=== PATIENT | female | born 1985 | race Native Hawaiian/Other Pacific Islander ===

== ENCOUNTER 2022-09-28 10:40 | Outpatient (CLI) | payer OTHER ==
--- NOTE | 2022-09-28 19:06 | XRAY Report ---
PROCEDURE: Ribs w/PA Chest LT INDICATIONS: CONTUSION OF LEFT FRONTAL WALL THORAX TECHNIQUE: 2 views of the left ribs were acquired, along with a single view chest. COMPARISON: None. FINDINGS: Surgical changes and devices: None. Bones and chest wall: No fractures or dislocations. No suspicious bony lesions. Overlying soft tis sues appear unremarkable. Lungs and pleura: No pleural effusions or pneumothorax. Lungs appear clear. Mediastinum: Mediastinal contours appear normal. Heart size is normal. IMPRESSION: No displaced rib fracture or pneumothorax. Reviewed by: Helio Knox on 09/28/2022 6:05 PM DB Approved by: Helio Knox on 09/28/2022 6:05 PM DB Station ID: [id number]
== END 2022-09-28 10:41 | disposition home or self-care (01) ==
LOC: DI 10:40
PROVIDERS: ATTEND Registered Nurse
DX: S20.212A Contusion of left front wall of thorax, initial encounter (principal)

== ENCOUNTER 2023-07-20 08:00 | Outpatient (CLI) | payer OTHER ==
[2023-07-20 16:55] LABS: BILIRUBIN,URINE NEGATIVE (NEGATIVE); GLUCOSE, URINE (UA) NEGATIVE (NEGATIVE); KETONES,URINE (UA) TRACE mg/dL (NEGATIVE); LEUKOCYTE ESTERASE, URINE NEGATIVE (NEGATIVE); NITRITE,URINE NEGATIVE (NEGATIVE); OCCULT BLOOD,URINE NEGATIVE (NEGATIVE); PROTEIN,URINE NEGATIVE (NEGATIVE); UROBILINOGEN,URINE 0.2 (NORMAL) E.U./dL (NORMAL)
[2023-07-20 16:57] LABS: CLARITY,URINE CLOUDY (CLEAR)
[2023-07-20 17:06] LABS: AMORPHOUS SEDIMENT,UR Marked /LPF; BACTERIA,URINE None Seen /HPF (None Seen); RBC,URINE 0-5 /HPF (0-5); SQUAMOUS EPITHELIAL CELL,UR RARE Squamous (<= Few); WBC,URINE 0-3 /HPF (0-5)
== END 2023-07-20 23:59 | disposition home or self-care (01) ==
LOC: LAB.WC 08:00
PROVIDERS: ATTEND Obstetrics & Gynecology
DX: Z34.90 Encounter for supervision of normal pregnancy, unspecified, unspecified trimester (principal)
CPT/HCPCS: 81001; 87086

== ENCOUNTER 2023-07-21 13:23 | Outpatient (CLI) | payer OTHER ==
[2023-07-21 17:42] LABS: BASOPHILS # (AUTO) 0.1 10^3/uL (0.0-0.1); BASOPHILS % (AUTO) 0.5 %; EOSINOPHILS # (AUTO) 0.3 10^3/uL (0.0-0.7); EOSINOPHILS % (AUTO) 2.6 %; HGB - HEMOGLOBIN 14.1 g/dL (12.0-16.0); LYMPHOCYTES # (AUTO) 2.4 10^3/uL (1.5-3.5); LYMPHOCYTES % (AUTO) 24.9 %; MEAN CORPUSCULAR HEMOGLOBIN 27.2 pg (27.0-31.0); MEAN CORPUSCULAR VOLUME 84.9 fL (81.0-99.0); MEAN PLATELET VOLUME 10.5 fL (7.9-10.8); MONOCYTES # (AUTO) 0.3 10^3/uL (0.0-1.0); MONOCYTES % (AUTO) 3.2 %; NEUTROPHILS # (AUTO) 6.5 10^3/uL (1.5-6.6); NEUTROPHILS % (AUTO) 68.5 %; PLT - PLATELET COUNT 415 10^3/uL (130-450); RED BLOOD COUNT 5.18 10^6/uL (4.20-5.40); RED CELL DISTRIBUTION WIDTH 13.6 % (12.0-15.0); WHITE BLOOD COUNT 9.6 x10^3/uL (4.8-10.8)
[2023-07-22 05:14] LABS: HBsAG SCREEN Negative (Negative); HIV SCREEN 4TH GENERATION Non Reactive (Non Reactive)
[2023-07-22 07:10] LABS: RPR Non Reactive (Non Reactive)
[2023-07-22 09:10] LABS: VARICELLA-ZOSTER AB IGG 1897 index (Immune >165)
[2023-07-24 12:07] LABS: HCV AB Non Reactive (Non Reactive)
== END 2023-07-21 13:24 | disposition home or self-care (01) ==
LOC: LAB.N 13:23
PROVIDERS: ATTEND Obstetrics & Gynecology
DX: Z34.90 Encounter for supervision of normal pregnancy, unspecified, unspecified trimester (principal)
CPT/HCPCS: 36415; 85025; 86592; 86762; 86787; 86803; 86850; 86900; 86901; 87340; 87389

== ENCOUNTER 2023-08-07 06:38 | Emergency (ER) | payer BC, OTHER ==
--- NOTE | 2023-08-07 06:51 | ED Physician Documentation ---
PD HPI NVD - Stated complaint Stated Complaint: /V - Chief complaint Chief Complaint: Abd Pain - History obtained from History obtained from: Patient - History of Present Illness Timing - onset: How many days ago (has had commonly nausea with occasional vomitiing over past 2 months, but has more consistent the past 2-3 days with general weakness and lightheaded. Is currently 13 weeks . Sees RN BABY and Rx Vit B-6, doxylamine.) Timing - details: Gradual onset, Still present Associated symptoms: Loss of appetite. No: Fever, Abdominal pain Contributing factors: Other (). No: Sick contact, Bad food, Recent antibiotics Improved by: No: Vomiting Worsened by: Eating Recently seen: Clinic (seen RN BAB[facility] clinic with routine care so far.) Review of Systems Constitutional: denies: Fever, Chills Nose: denies: Rhinorrhea / runny nose, Congestion Throat: denies: Sore throat Respiratory: denies: Cough : reports: Now EGA (13 wks). denies: Dysuria, Frequency, Discharge, Vaginal bleeding PD PAST MEDICAL HISTORY - Past Medical History Past Medical History: Yes Endocrine/Autoimmune: HyPOthyroidism - Past Surgical History Past Surgical History: Yes /[employer]: section, Other HEENT: Other - Present Medications Home Medications: Ambulatory Orders Medication Instructions Recorded Confirmed Levothyroxine [Synthroid] 1 tab PO DAILY 07/03/23 08/07/23 No122/Iron/Folic Acid 1 tab PO DAILY 07/03/23 08/07/23 [ Multi Tablet] Magnesium Oxide [Mag Ox] 400 mg PO DAILY #15 tablet 08/07/23 Ondansetron Odt [Zofran] 4 mg TL Q6H PRN #20 tablet 08/07/23 Promethazine Supp [Phenergan Supp] 25 mg DE Q6H PRN #10 supp 08/07/23 dexAMETHasone [Decadron] 4 mg PO DAILY #5 tablet 08/07/23 - Allergies Allergies/Adverse Reactions: Allergies Allergy/AdvReac Type Severity Reaction Status Date / Time Penicillins Allergy Hives Verified 08/07/23 06:48 Sulfa (Sulfonamide Allergy Hives Verified 08/07/23 06:48 Antibiotics) - Social History Does the pt smoke?: No Smoking Status: Never smoker Does the pt drink ETOH?: No Does the pt have substance abuse?: No - Immunizations Immunizations are current?: Yes - POLST Patient has POLST: No PD ED PE NORMAL - Vitals Vital signs reviewed: Yes - General General: Alert and oriented X 3, No acute distress, Well developed/nourished - HEENT HEENT: Pharynx benign. No: Moist mucous membranes - Neck Neck: Supple, no meningeal sign, No adenopathy - Cardiac Cardiac: RRR - Respiratory Respiratory: Clear bilaterally - Abdomen Abdomen: Soft, Non tender, Non distended, Other (bedside US by me showed normal IUP c/w dates, with movement and good FHR 130s. No free fluid noted in pelvis. ) Results - Vitals Vitals: Vital Signs - 24 hr 08/07/23 08/07/23 06:40 09:14 Temperature 36.2 C L Heart Rate 63 76 Respiratory 16 16 Rate Blood Pressure 110/63 104/73 O2 Saturation 100 100 Oxygen O2 Source Room air - Labs Labs: Laboratory Tests 08/07/23 08/07/23 08/07/23 07:20 07:20 07:30 WBC 8.3 RBC 4.56 Hgb 12.9 Hct 39.0 MCV 85.5 MCH 28.3 MCHC 33.1 RDW 14.6 Plt Count 295 MPV 10.5 Neut # (Auto) 5.6 Lymph # (Auto) 2.0 Andrew # (Auto) 0.4 Eos # (Auto) 0.3 Baso # (Auto) 0.0 Absolute Nucleated RBC 0.00 Nucleated RBC % 0.0 Sodium 133 L Potassium 3.9 Chloride 103 Carbon Dioxide 24 Anion Gap 6.0 BUN 6 Creatinine 0.5 L Estimated GFR (MDRD) 140 Glucose 88 Calcium 9.8 Phosphorus 3.8 Magnesium 1.7 Total Bilirubin 0.5 AST 18 ALT 10 Alkaline Phosphatase 26 L Total Protein 7.4 Albumin 4.4 Globulin 3.0 Albumin/Globulin Ratio 1.5 Lipase 44 Urine Color YELLOW Urine Clarity CLEAR Urine pH 6.5 Ur Specific [place] 1.020 Urine Protein NEGATIVE Urine Glucose (UA) NEGATIVE Urine Ketones NEGATIVE Urine Occult Blood TRACE-INTA Urine Nitrite NEGATIVE Urine Bilirubin NEGATIVE Urine Urobilinogen 0.2 (NORMAL) Ur Leukocyte Esterase NEGATIVE Ur Microscopic Review NOT INDICATED Urine Culture Comments NOT INDICATED PD Medical Decision Making - ED course Complexity details: reviewed results (Labs without notable lytes nor sugar problems.), re-evaluated patient (feeling much improved with IV lfuids and meds. Per ACOG, can add Decadron short term, and PRN ZOfran/Phenergan in addition to the Vit B-6 and doxylamine.), considered differential (seems related hyperemesis with worse the past few days, leading to volume depletion. Can give IV fluids and meds for symptoms. To check lytes. Bedside US to affirm normal movement,FHR.), d/w patient Departure - Departure Disposition: 01 Home, Self Care Clinical Impression: Hyperemesis gravidarum before end of 22 week gestation, dehydration Condition: Stable Record reviewed to determine appropriate education?: Yes Follow-Up: Nico Johnson MD [Provider Admit Priv/Credential] - Prescriptions: dexAMETHasone [Decadron] 4 mg PO DAILY #5 tablet Magnesium Oxide [Mag Ox] 400 mg PO DAILY #15 tablet Promethazine Supp [Phenergan Supp] 25 mg DE Q6H PRN #10 supp PRN Reason: Nausea / Vomiting Ondansetron Odt [Zofran] 4 mg TL Q6H PRN #20 tablet PRN Reason: Nausea / Vomiting Comments: Bedside ultrasound showed normal appearance of your with good movement and heartbeat in position. Stay well-hydrated best you can. Your chemistry panel showed normal lab values though the magnesium level was on the low end of normal. I would consider a supplement of that for a week or 2 just to bring up the levels. You can add a stool softener such as docusate daily and that is okay in . Be sure to have a good fiber diet. Continue with your current usual medicines. Add Decadron steroid daily for a fe w days. This is a common recommendation from ACOG for ongoing nausea episodes that have increased. Add ondansetron every 6-8 hours if needed for nausea. If you are having active vomiting and oral medicines not working, I did prescribe some promethazine suppositories as a backup as well. Follow-up with your RN BABY. I sent your prescriptions to your preferred pharmacy. Off work today. Forms: PCP List Discharge Date/Time: 08/07/23 09:58
[2023-08-07 06:54] VITALS: O2SAT 100
[2023-08-07] MEDS: LACTATED RINGERS 2,000 ML IV ONE (07:26)
[2023-08-07] MEDS: KETOROLAC 15 MG/ML VIAL IVP STA (07:27)
[2023-08-07] MEDS: FAMOTIDINE 20 MG/2 ML VIAL IVP STA (07:27)
[2023-08-07] MEDS: DOCUSATE SODIUM 100 MG CAPSULE PO STA (07:28)
[2023-08-07] MEDS: ONDANSETRON 4 MG/2 ML VIAL IVP STA (07:28)
[2023-08-07 07:40] LABS: BILIRUBIN,URINE NEGATIVE (NEGATIVE); GLUCOSE, URINE (UA) NEGATIVE (NEGATIVE); KETONES,URINE (UA) NEGATIVE (NEGATIVE); LEUKOCYTE ESTERASE, URINE NEGATIVE (NEGATIVE); NITRITE,URINE NEGATIVE (NEGATIVE); OCCULT BLOOD,URINE TRACE-INTA (NEGATIVE); PH,URINE 6.5 PH (5.0-7.5); PROTEIN,URINE NEGATIVE (NEGATIVE); UROBILINOGEN,URINE 0.2 (NORMAL) E.U./dL (NORMAL)
[2023-08-07 07:42] LABS: MAGNESIUM 1.7 mg/dL (1.7-2.3); PHOSPHORUS 3.8 mg/dL (2.5-5.0)
[2023-08-07 07:43] LABS: CLARITY,URINE CLEAR (CLEAR)
[2023-08-07 07:44] LABS: ALBUMIN 4.4 g/dL (3.2-5.5); ALBUMIN/GLOBULIN RATIO 1.5 (1.0-2.2); BILIRUBIN,TOTAL 0.5 mg/dL (0.2-1.0); CALCIUM 9.8 mg/dL (8.5-10.3); CREATININE 0.5 mg/dL (0.6-1.3); POTASSIUM 3.9 mmol/L (3.5-4.5); TOTAL PROTEIN 7.4 g/dL (6.4-8.9)
[2023-08-07] MEDS: MAGNESIUM OXIDE 400 MG TABLET PO STA (09:13)
[2023-08-07 09:21] VITALS: BP 104/73
[2023-08-07 09:35] LABS: BASOPHILS % (AUTO) 0.4 %; EOSINOPHILS # (AUTO) 0.3 10^3/uL (0.0-0.7); EOSINOPHILS % (AUTO) 3.5 %; HGB - HEMOGLOBIN 12.9 g/dL (12.0-16.0); LYMPHOCYTES % (AUTO) 23.8 %; MEAN CORPUSCULAR HEMOGLOBIN 28.3 pg (27.0-31.0); MEAN CORPUSCULAR HGB CONC 33.1 g/dL (32.0-36.0); MEAN CORPUSCULAR VOLUME 85.5 fL (81.0-99.0); MEAN PLATELET VOLUME 10.5 fL (7.9-10.8); MONOCYTES # (AUTO) 0.4 10^3/uL (0.0-1.0); NEUTROPHILS # (AUTO) 5.6 10^3/uL (1.5-6.6); NEUTROPHILS % (AUTO) 66.9 %; PLT - PLATELET COUNT 295 10^3/uL (130-450); RED BLOOD COUNT 4.56 10^6/uL (4.20-5.40); RED CELL DISTRIBUTION WIDTH 14.6 % (12.0-15.0); WHITE BLOOD COUNT 8.3 x10^3/uL (4.8-10.8)
== END 2023-08-07 09:58 | disposition home or self-care (01) ==
LOC: ED 06:38
DX: O21.1 Hyperemesis gravidarum with metabolic disturbance (principal); Z3A.13 13 weeks gestation of pregnancy; O99.281 Endocrine, nutritional and metabolic diseases complicating pregnancy, first trimester; E03.9 Hypothyroidism, unspecified; Z79.899 Other long term (current) drug therapy
CPT/HCPCS: 36415; 80053; 81003; 83690; 83735; 84100; 85025; 96361; 96374; 96375; 99283; 99284; A9270; J7120; 81001; 87086